=== PATIENT | female | born 1985 | race Caucasian/White ===

== ENCOUNTER → 2017-01-04 | Outpatient (CLI) | payer OTHER ==
[2017-01-04 12:23] LABS: FREE T3 2.55 PG/ML (2.18-3.98); FREE T4 0.89 NG/DL (0.76-1.46)
[2017-01-06 19:53] LABS: PROGESTERONE 0.1 ng/mL (())
== END ==
LOC: ELAB 07:01
PROVIDERS: ATTEND Obstetrics & Gynecology
DX: L65.9 Nonscarring hair loss, unspecified (principal)
CPT/HCPCS: 36415; 82670; 82679; 84144; 84403; 84439; 84443; 84481